=== PATIENT | female | born 1950 | race Caucasian/White ===

== ENCOUNTER → 2024-04-23 09:13 | Outpatient (CLI) | payer OTHER, SELFPAY ==
--- NOTE | 2024-04-23 09:15 | DI.US.S_ITS ---
PROCEDURE: US EXTREMITY NONVASC UPPER LT INDICATIONS: LUMP ON LEFT WRIST TECHNIQUE: Real-time scanning was performed of the ulnar aspect of the left wrist , with image documentation. COMPARISON: None. FINDINGS: At the level of the ulnar styloid process, there is thickening of the overlying tendon, possibly the extensor carpi ulnaris. Slightly proximal to this area, there is a 0.9 x 0.2 x 1.4 cm ellipsoid hypoechoic subcutaneous collection without internal vascularity. IMPRESSION: Possible tenosynovitis of the extensor carpi ulnaris and a possible 1.4 cm lipoma at the ulnar aspect of the wrist. An MRI of the left wrist with and without contrast would be recommended for clarification. Dictated by: Alvaro Zapata M.D. on 04/23/2024 at 16:04 Approved by: Alvaro Zapata M.D. on 04/23/2024 at 16:08
== END ==
LOC: US 09:14
PROVIDERS: PCP Student in an Organized Health Care Education/Training Program; Referring Provider Student in an Organized Health Care Education/Training Program; Visit Provider Student in an Organized Health Care Education/Training Program
DX: M25.532 Pain in left wrist (principal); R22.32 Localized swelling, mass and lump, left upper limb
CPT/HCPCS: 76882